=== PATIENT | male | born 1980 | race American Indian/Alaskan Native ===

== ENCOUNTER 2018-08-01 08:59 | Outpatient (CLI) | payer BC ==
--- NOTE | 2018-08-01 14:18 | Ultrasound Report ---
Abdominal sonogram: History: Abdominal pain. Findings: Normal liver. No intrahepatic or extrahepatic duct dilatation. Common bile duct diameter 2.1 mm. Gallbladder wall thickness to 1 cm. Sludge within the gallbladder. No calculi. Right kidney 9.3 x 2.8 x 4.8 cm cortical thickness 1.0 cm. Left kidney 10.1 x 3.8 x 4.3 cm. Cortical thickness 1.5 cm cyst Normal spleen measures 10.3 cm. Normal pancreas head and body. Tail not visualized. Impression: Sludge in the gallbladder.
== END 2018-08-01 09:00 | disposition home or self-care (01) ==
LOC: US 08:59
PROVIDERS: ATTEND Family Medicine Adult Medicine
DX: K82.8 Other specified diseases of gallbladder (principal)
CPT/HCPCS: 76700